=== PATIENT | female | born 1990 | race Caucasian/White ===

== ENCOUNTER 2022-03-17 15:45 | Emergency (ER) | payer SELFPAY ==
--- NOTE | ~2022-03-17 | XR_ITS ---
EXAM: XR hand RT min 3V DATE: 03/17/2022 16:28 HISTORY: animal bite, ANTERIOR LACERATION AROUND 2ND METACARPAL . COMPARISON: None available. FINDINGS: Normal mineralization. No fracture or dislocation. No lytic or blastic lesion. Joint space s are maintained. No erosion or periosteal change. Soft tissues within normal limits. IMPRESSION: No acute osseous finding in the right hand. Reviewed, dictated and finalized at location K.
[2022-03-17 15:57] VITALS: BP 135/83; PULSE 100; RESP 15; TEMP 37.2; O2SAT 100
--- NOTE | 2022-03-17 17:07 | ED.ANIMALBIT ---
HPI - Animal Bite General Chief Complaint: Animal Bite Stated Complaint: CAT BITE R HAND Time Seen by Provider: 03/17/22 16:22 History of Present Illness HPI narrative: 31-year-old female presents to the emergency room with a cat bite to her right hand. Patient states that the known cat bit her 2 days ago. No concerns over rabies at this time. Patient states she has had considerable amount of redness and swelling around the bite. Related Data Allergies Allergy/AdvReac Type Severity Reaction Status Date / Time azithromycin Allergy Unknown Verified 12/19/16 20:40 Review of Systems Review of Systems: CONSTITUTIONAL: Denies fever, chills, or sweats. EYES: Denies visual changes, redness, or discharge. ENT: Denies rhinorrhea, congestion, sore throat, or otalgia. CARDIOVASCULAR: Denies chest pain, palpitations, or edema. RESPIRATORY: Denies cough or dyspnea. GASTROINTESTINAL: Denies abdominal pain, nausea, vomiting, or diarrhea. GENITOURINARY: Denies dysuria or hematuria. SKIN: Denies rash or itching. MUSCULOSKELETAL: Denies back pain, joint pain, or myalgia. NEUROLOGIC: Denies headache, numbness, dizziness, or weakness. PSYCHIATRIC: Denies anxiety or depression. Exam Narrative: GENERAL: Well-appearing, well-nourished, and in no acute distress. HEAD: Normocephalic, atraumatic. EYES: PERRLA and EOMI. ENT: Nares clear, no rhinorrhea or epistaxis. Mucous membranes moist. Oropharynx without tonsillar hypertrophy exudate or other lesions. Bilateral TMs pearly martinez nonbulging NECK: Supple. No adenopathy or masses. No carotid bruits or JVD CHEST: Clear to auscultation. No respiratory distress. No wheezes rales or rhonchi HEART: Regular rate and rhythm. No murmur heard. Normal peripheral pulses. ABDOMEN: Soft, nontender, nondistended, normal active bowel sounds. EXTREMITIES: Right hand: Puncture wounds to the palmar and dorsal aspect of the webbing, erythema and soft tissue swelling noted over the MCP joint of the second finger, no streaking, no purulent drainage, full range of motion, no note obvious joint or ligament laxity SKIN: Warm, dry, no rash. NEURO: No focal deficits. Alert and oriented x3. PSYCH: Normal mood and affect. Course Course Emergency Course: 1750: Discussed case with Dr. Maldonado, he is willing to see the patient in his office in 1 to 2 days. Vital Signs Vital signs: Vital Signs Temperature 37.2 C 03/17/22 15:57 Pulse Rate 100 03/17/22 15:57 Respiratory Rate 15 03/17/22 15:57 Blood Pressure 135/83 03/17/22 15:57 Pulse Oximetry 100 03/17/22 15:57 Oxygen Delivery Room Air 03/17/22 15:57 Temperature 37.2 C 03/17/22 15:57 Pulse Rate 100 03/17/22 15:57 Respiratory Rate 15 03/17/22 15:57 Blood Pressure 135/83 03/17/22 15:57 Pulse Oximetry 100 03/17/22 15:57 Oxygen Delivery Room Air 03/17/22 15:57 Discharge Plan Discharge Clinical Impression: Bite by animal, Cat bite Patient Disposition: Home, Self-Care Condition: Stable Instructions: Antibiotic Form, Animal Bite (ED) Additional Instructions: Follow-up with Dr. Rose in 1 to 2 days for further evaluation of your Eye. Since the cat appears to be aggressive recommend contacting animal control for further management of the animal. Prescriptions: New amoxicillin-pot clavulanate 875-125 mg tablet 1 tablet PO Q12H 10 Days Qty: 20 0RF Follow-up/Referrals: Nikko Matthews MD [Primary Care Provider] - Stand Alone Forms: Work/School Release IP Time of Disposition: 17:54
[2022-03-17] MEDS: AMPICILLIN SULB 3 GM/NS 100 ML 3 GM/100 ML VIAL IVPB (17:16)
[2022-03-17] MEDS: TETANUS,DIPHTHERIA,AC PERTUSSIS ADULT (0.5 ML) BOOSTRIX IM (17:24)
== END 2022-03-17 18:18 | disposition home or self-care (01) ==
PROVIDERS: Emergency Provider Nurse Practitioner Family; PCP Family Medicine
DX: S61.451A Open bite of right hand, initial encounter (principal); Z23 Encounter for immunization; W55.01XA Bitten by cat, initial encounter
CPT/HCPCS: 73130; 90471; 90715; 96365; 99284; J0295